=== PATIENT | male | born 2000 | race Caucasian/White ===

== ENCOUNTER 2022-07-12 11:26 | Emergency (ER) | payer OTHER ==
[~2022-07-12] VITALS: Ht 182.9 cm; Wt 98.3 kg
[2022-07-12] MEDS ORDERED: LevoFLOXacin 500 MG TABLET PO ONE (17:25)
[2022-07-12] MEDS ORDERED: LEVO1TAB39 PO (17:29)
[2022-07-12 17:48] VITALS: BP 143/71
[2022-07-12 19:43] LABS: GC DNA AMPLIFICATION NEGATIVE (NEGATIVE)
[2022-07-12] MEDS ORDERED: DOXY-443 PO (20:14)
[2022-07-13] MEDS ORDERED: LEVO1TAB39 PO (07:51)
[2022-07-13] MEDS ORDERED: DOXY-443 PO (08:10)
== END 2022-07-12 17:51 | disposition home or self-care (01) ==
LOC: M ED 11:26
DX: N45.3 Epididymo-orchitis (principal)

== ENCOUNTER 2022-07-12 21:15 | Emergency (ER) | payer OTHER ==
[~2022-07-12] VITALS: Ht 182.9 cm; Wt 101.1 kg
[~2022-07-12 21:15] MED LIST: DOXY-443 PO; LEVO1TAB39 PO
[2022-07-12 21:16] VITALS: BP 140/66
[2022-07-13] MEDS ORDERED: LEVO1TAB39 PO (07:51)
[2022-07-13] MEDS ORDERED: DOXY-443 PO (08:10)
== END 2022-07-12 22:46 | disposition left against medical advice (07) ==
LOC: M ED 21:15
DX: Z53.21 Procedure and treatment not carried out due to patient leaving prior to being seen by health care provider (principal)

== ENCOUNTER 2022-07-13 07:45 | Emergency (ER) | payer OTHER ==
[~2022-07-13] VITALS: Ht 182.9 cm; Wt 107.0 kg
[2022-07-13] MEDS ORDERED: LEVO1TAB39 PO (07:51)
[2022-07-13] MEDS ORDERED: DOXY-443 PO (08:10)
[2022-07-13] MEDS ORDERED: DOXYCYCLINE HYCLATE 100MG TABLET PO ONE (08:10)
[2022-07-13 08:40] VITALS: BP 119/61
== END 2022-07-13 08:54 | disposition home or self-care (01) ==
LOC: M ED 07:45
DX: A74.9 Chlamydial infection, unspecified (principal)